=== PATIENT | female | born 1985 | race Caucasian/White ===

== ENCOUNTER → 2023-11-09 06:29 | Day surgery (SDC) | payer MEDICARE, OTHER, SELFPAY | LOC: GI 06:29 | PROVIDERS: ATTENDING PHYSICIAN Internal Medicine Gastroenterology | DX: R12 Heartburn (principal); R11.2 Nausea with vomiting, unspecified; K29.50 Unspecified chronic gastritis without bleeding; K31.89 Other diseases of stomach and duodenum | CPT/HCPCS: 43239; 88305; 88342 ==

== ENCOUNTER → 2023-11-13 14:09 | Outpatient (REF) | payer MEDICARE, OTHER, SELFPAY | LOC: PAVMRI 14:09 | PROVIDERS: ATTENDING PHYSICIAN Otolaryngology; FAMILY PHYSICIAN Family Medicine | DX: R42 Dizziness and giddiness (principal) | CPT/HCPCS: 70553; A9575 ==

== ENCOUNTER 2023-11-18 10:40 | Emergency (ER) | payer MEDICARE, OTHER, SELFPAY ==
[2023-11-18 10:41] VITALS: BP 125/89
--- NOTE | 2023-11-18 11:20 | EDRN ---
Alberto Wells PA in room w/ pt at this time.
--- NOTE | 2023-11-18 11:33 | ED.GENMED ---
History of Present Illness
General
Chief Complaint: Abdominal Pain
Source: patient and family
Time Seen by Provider: 11/18/23 11:08
Travel History
Have you had any contact with someone who has COVID-19?: No
Do you have any symptoms of coronavirus? Fever > 100 degrees, chills, cough, shortness of breath, sore throat, loss of taste or smell, muscle aches, or headache?: No
History of Present Illness
History of Present Illness:
38-year-old female with past medical history of GERD and chronic abdominal pain, anxiety/bipolar disorder/depression/PTSD presenting to the emergency department for evaluation of an acute on chronic exacerbation of her abdominal pain, nausea,
vomiting and diarrhea noting this morning she woke up and took 5 laxatives to help her go to the bathroom and she states since that time has had diarrhea, proceeded to vomit few episodes of bilious emesis and felt dizzy following this event.
Patient follows with ENT for chronic dizziness as well as with GI for her abdominal complications. Patient had an endoscopy about 2 weeks ago which did not show any abnormalities. Patient did not take any medications prior to arrival. She notes
her pain currently is in usual location on the right side of her abdomen but states if she is usually around a 4 or 6 out of 10, today's pain is a 10 out of 10.
Past History
Past History
ED Past Medical History: Asthma, Fibromyalgia, Hypothyroidism, Psychiatric (Bipolar, CHERRI, PTSD), Other (migraines) and Other (anemia)
ED Past Surgical History: Cholecystectomy, and Tonsilectomy
Patient has exhibited threatening behavior?: No
Social History
Tobacco: Smoker
Alcohol: Occasional
Drug: None
Personal: Single
Living: with family
Employment: Not employed
Family History
Family History: Other (Noncontributory)
Review of Systems
Review of Systems
All Other Systems: ROS reviewed and negative except as documented in HPI and ROS
Phy Exam
Physical Exam
Physical Exam:
GENERAL: Alert , in no apparent distress
EYE: clear conjunctiva b/l
HEAD: NCAT
ENT: o/p clr, mmm.
CARDIAC: Regular rate and rhythm .
LUNGS: Clear breath sounds bilaterally, no acute respiratory distress, no wheezes/rales/rhonchi
ABDOMEN: Soft, patient reports diffuse tenderness on the right side of the abdomen, no r/g, no cvat
NEUROLOGICAL: Alert and oriented
SKIN: Warm and dry, skin intact.
MUSCULOSKELETAL: No edema, well perfused.
PSYCH: Normal and appropriate interaction.
Scores
Heart Failure Risk
Heart Failure Risk Score: Not Applicable
Heart Score for Chest Pain Patients
STEMI patient?: Not applicable
Withdrawal Assessment of Alcohol
Withdrawal Assessment Completed?: Not applicable
Course
Orders/Labs/Results
Orders:
Orders
11/18/23 11:20
IV Insert/Care/Rem.- Treatment PRN
Test Result ONCE
11/18/23 11:27
0.9% Sodium Chloride 1000 ml [Nss] 1,000 ml IV BOLUS
Ketorolac [Toradol] 30 mg IV NOW STA
11/18/23 11:34
Complete Blood Count/With Diff Urgent
Comprehensive Metabolic Panel Urgent
HCG, Serum Qualitative Screen Urgent
Lipase Urgent
11/18/23 12:04
CR Obstruct Series W/pa Chest Urgent
Comment:
Reason For Exam: abd pain, N/V
Abnormal Lab Results
11/18/23
11:34
Absolute Neuts (auto) 7.4 H 10^3/uL
(1.4-6.5)
Lymphocytes % 16.4 L %
(20.5-51.1)
Sodium 132 L mmol/L
(135-145)
BUN 6 L mg/dl
(7-17)
11/18/23 11:34
11/18/23 11:34
Vital Signs
Initial and Last Documented VS:
Initial Vital Signs
Temp Pulse Resp BP Pulse Ox
97.7 F 103 20 125/89 96
11/18/23 10:41 11/18/23 10:41 11/18/23 10:41 11/18/23 10:41 11/18/23 10:41
Last Documented Vital Signs
Temp Pulse Resp BP Pulse Ox
97.7 F 77 16 106/79 98
11/18/23 10:41 11/18/23 14:37 11/18/23 14:37 11/18/23 14:37 11/18/23 14:37
MDM/Problems Addressed
Differential Diagnosis Includes:
Exacerbation of chronic abdominal pain, patient is status postcholecystectomy so no concern for this is a complication, possible appendicitis however given patient's pain is in the usual location as well as similar quality I am less suspicious for
an acute surgical abdomen
MDM/Problems Addressed:
38-year-old female present emergency department for evaluation of an exacerbation of her usual abdominal pain. Did not take any medications for relief prior to arrival. She notes that she did take 5 laxative supplements to help her have a bowel
movement which she will often do but today had liquidy stool and proceeded to have bilious emesis. Patient is in no acute distress. Abdominal exam is reassuring. There is no rigidity, no rebound tenderness or guarding. Patient states she was
hoping to get IV fluids as she was very concerned for dehydration. Patient is not outwardly showing any signs of dehydration however will treat with IV fluids. Toradol for pain. I reviewed patient's records which showed her unremarkable endoscopy
done 2 weeks ago as well as a CT scan that was done in July 2023 for similar presentation which did not yield any acute abnormalities. Given her symptoms as well as history of abdominal surgeries will obtain an x-ray of the abdomen to rule out
any potential obstructive processes. Labs ordered. Reassessment following with anticipation of discharge home and continued outpatient management.
Chronic conditions affecting care: Other (Chronic abdominal pain)
*Radiology
Radiology exam reviewed: preliminary read by ED provider ( no obstructive process)
*Pulse Oximetry
Patient hypoxic: no
*Critical Care Note
Total Time (30-74mins, 75-104mins- exclusive of procedures): Not Applicable
Comment
Comment:
On reevaluation patient is resting and in no acute distress. Pending obstructive series with anticipation of discharge home.
Patient Management
Escalation/DeEscalation of care consider admission/obs:
Obstructive series does not show any acute abnormalities. Patient is tolerating p.o. without difficulty. She is ultimately stable for discharge home and continued outpatient management
ED Attending Note
-
Portions of this chart may have been created with voice recognition software.� Occasional wrong word or��sound alike� substitutions may have occurred due to the inherent limitations of voice recognition software.
Discharge Plan
Departure
Patient Disposition: Home (Routine Discharge)
Date of Disposition: 11/18/23
Time of Disposition: 14:18
Patient with high blood pressure during this ER visit?: No
Discharge Problem:
Abdominal pain, Nausea and vomiting
Instructions: Abdominal Pain
Prescriptions:
New
meclizine [Antivert] 50 mg tablet
50 mg PO DAILY PRN (Reason: dizziness) Qty: 6 0RF
No Action
pantoprazole [Protonix] 40 mg Tablet,Delayed Release (Dr/Ec)
40 mg PO BID
lamotrigine [Lamictal] 100 mg Tablet
100 mg PO DAILY
lurasidone [Latuda] 40 mg Tablet
40 mg PO DAILY
Rx Instructions:
must administer with food (at least 350 calories)
meloxicam
1 tab PO TID
ondansetron 4 mg tablet,disintegrating
4 mg PO Q8H PRN (Reason: nausea and vomiting) 2 Days Qty: 3 0RF
promethazine 25 mg suppository
25 mg MO Q6H PRN (Reason: nausea and vomiting) Qty: 20 0RF
Referrals:
Raymundo Gunn, [Family Provider] -
Interventions
Interventions:
*Risk Screen - Suicide Last Done: 11/18/23 11:45
*General Assessment Last Done: 11/18/23 11:45
*Neglect/Abuse Screening Last Done: 11/18/23 11:45
ED- Fall Risk Assessment Last Done: 11/18/23 11:45
*ED COVID-19 Vaccine History Last Done: 11/18/23 10:41
*Nursing Disposition Last Done: 11/18/23 14:50
XX-Pajqpv-Mptezionwn Assessment Last Done: 11/18/23 11:45
Discharge Date and Time
Discharge Date/Time: 11/18/23 14:50
Print Language: TELUGU
[2023-11-18 11:45] VITALS: BMI 42.8
[2023-11-18] MEDS: NSS 1000 IV (11:53)
[2023-11-18 11:55] LABS: % Basophils 0.4 % (0-2); % Eosinophils 3.1 % (0-6); % Immature Granulocytes 0.2 % (0-0.5); % Lymphocytes 16.4 % (20.5-51.1); % Monocytes 4.7 % (1.7-9.3); % Neutrophils 75.2 % (42.2-75.2); Absolute Eosinophils 0.3 10^3/uL (0-0.7); Absolute Lymphocytes 1.6 10^3/uL (1.2-3.4); Absolute Monocytes 0.5 10^3/uL (0.1-0.6); Absolute Neutrophils 7.4 10^3/uL (1.4-6.5); Hematocrit 40.5 % (37.0-47.0); Hemoglobin 14.8 g/dL (12.0-16.0); Mean Corp Hgb Conc. 36.5 g/dL (33.0-37.0); Mean Corpuscular Hgb 30.2 pg (27.0-31.0); Mean Corpuscular Volume 82.7 fL (81.0-99.0); Mean Platelet Volume 9.9 fL (7.4-10.4); Nucleated Red Blood Cells % 0 %; Platelet Count 291 10^3/uL (130-400); White Blood Cell Count 9.8 10^3/uL (4.8-10.8)
[2023-11-18] MEDS: TORADOL 30 MG IV (11:58)
[2023-11-18 12:14] VITALS: BP 117/77
[2023-11-18 12:14] LABS: ALT (SGPT) 23 U/L (0-35); AST (SGOT) 25 U/L (14-36); Albumin 4.1 g/dl (3.5-5.0); Alkaline Phosphatase 85 U/L (38-126); Blood Urea Nitrogen 6 mg/dl (7-17); Calcium 9.3 mg/dl (8.4-10.2); Carbon Dioxide 23 mmol/L (22-30); Chloride 102 mmol/L (98-107); Estimated Creatinine Clearance 116 ml/min; Glucose 98 mg/dl (70-99); HCG, Serum Qualitative Screen Negative; Lipase 175 U/L (23-300); Potassium 3.7 mmol/L (3.5-5.1); Sodium 132 mmol/L (135-145); Total Bilirubin 0.5 mg/dl (0.2-1.3); Total Protein 7.3 g/dl (6.3-8.2); eGFR > 60.00
[2023-11-18 13:41] VITALS: BP 100/65
--- NOTE | 2023-11-18 14:25 | EDRN ---
Alberto Wells PA in room w/pt at this time.
[2023-11-18 14:37] VITALS: BP 106/79
== END 2023-11-18 14:50 | disposition home or self-care (01) ==
LOC: EMR 10:40
PROVIDERS: Physician Assistant Medical; EMERGENCY PHYSICIAN Emergency Medicine; FAMILY PHYSICIAN Family Medicine
DX: R11.2 Nausea with vomiting, unspecified (principal); R10.9 Unspecified abdominal pain; R42 Dizziness and giddiness; R19.7 Diarrhea, unspecified; G89.29 Other chronic pain; E03.9 Hypothyroidism, unspecified; M79.7 Fibromyalgia; F31.9 Bipolar disorder, unspecified; F43.10 Post-traumatic stress disorder, unspecified; K21.9 Gastro-esophageal reflux disease without esophagitis; J45.909 Unspecified asthma, uncomplicated; F41.1 Generalized anxiety disorder; G43.909 Migraine, unspecified, not intractable, without status migrainosus; F17.200 Nicotine dependence, unspecified, uncomplicated; Z90.49 Acquired absence of other specified parts of digestive tract; Z88.8 Allergy status to other drugs, medicaments and biological substances; Z91.048 Other nonmedicinal substance allergy status
CPT/HCPCS: 99284; 96374; 96361; 74022; 80053; 83690; 84703; 85025

== ENCOUNTER 2023-12-07 21:33 | Emergency (ER) | payer MEDICARE, OTHER, SELFPAY ==
[2023-12-07 21:40] VITALS: BP 165/107; BMI 42.3
[2023-12-07 22:03] LABS: % Basophils 0.5 % (0-2); % Eosinophils 4.4 % (0-6); % Immature Granulocytes 0.5 % (0-0.5); % Monocytes 5.1 % (1.7-9.3); % Neutrophils 67.5 % (42.2-75.2); Absolute Basophils 0.1 10^3/uL (0-0.2); Absolute Eosinophils 0.4 10^3/uL (0-0.7); Absolute Immature Granulocytes 0.1 10^3/uL (0-0.05); Absolute Lymphocytes 2.2 10^3/uL (1.2-3.4); Absolute Monocytes 0.5 10^3/uL (0.1-0.6); Absolute Neutrophils 6.8 10^3/uL (1.4-6.5); Hematocrit 41.3 % (37.0-47.0); Hemoglobin 14.9 g/dL (12.0-16.0); Mean Corp Hgb Conc. 36.1 g/dL (33.0-37.0); Mean Corpuscular Hgb 29.9 pg (27.0-31.0); Mean Corpuscular Volume 82.8 fL (81.0-99.0); Mean Platelet Volume 9.6 fL (7.4-10.4); Nucleated Red Blood Cells % 0 %; Platelet Count 319 10^3/uL (130-400); Red Blood Cell Count 4.99 10^6/uL (4.20-5.40); Urine Albumin Trace (Neg - Trace); Urine Bilirubin 1+ (Negative); Urine Character Slightly Cloudy (Clear); Urine Color Yellow; Urine Glucose Negative (Negative); Urine Ketone Trace (Negative); Urine Leukocyte Negative (Negative); Urine Nitrite Negative (Negative); Urine Occult Blood 1+ (Negative); Urine Urobilinogen 3+ (Neg - 1+)
[2023-12-07 22:10] LABS: Urine Bacteria Many (Negative); Urine Red Blood Cell 0-2 /HPF (0-2); Urine White Cell 0-2 /HPF (0-5)
[2023-12-07 22:15] LABS: ALT (SGPT) 24 U/L (0-35); AST (SGOT) 28 U/L (14-36); Albumin 4.3 g/dl (3.5-5.0); Alkaline Phosphatase 93 U/L (38-126); Blood Urea Nitrogen 9 mg/dl (7-17); Calcium 9.1 mg/dl (8.4-10.2); Carbon Dioxide 22 mmol/L (22-30); Chloride 100 mmol/L (98-107); Estimated Creatinine Clearance 115 ml/min; Glucose 104 mg/dl (70-99); Lipase 291 U/L (23-300); Potassium 3.7 mmol/L (3.5-5.1); Sodium 130 mmol/L (135-145); Total Bilirubin 0.5 mg/dl (0.2-1.3); Total Protein 7.5 g/dl (6.3-8.2); eGFR > 60.00
[2023-12-07 22:40] VITALS: BP 174/95
--- NOTE | 2023-12-08 00:14 | ED.GENMED ---
History of Present Illness
General
Chief Complaint: Abdominal Pain
Source: patient and family
Time Seen by Provider: 12/07/23 23:54
Travel History
Have you had any contact with someone who has COVID-19?: No
Do you have any symptoms of coronavirus? Fever > 100 degrees, chills, cough, shortness of breath, sore throat, loss of taste or smell, muscle aches, or headache?: No
History of Present Illness
History of Present Illness:
This patient is a 38-year-old female presents emergency department accompanied by her uncle with complaints of abdominal pain, constipation, nausea, and vomiting. Patient states that she has somewhat persistent upper abdominal pain, prickly on the
right side, and was seen here in the emergency department about 3 weeks ago with an unremarkable workup. She had a recent EGD which was reportedly unremarkable. She is continuing to get an outpatient evaluation with the GI team here. Patient
notes that the pain is constant, mostly in the right upper quadrant, without exacerbating relieving factors. She notes several episodes of nonbloody vomiting here. She denies fever, chills, chest pain, back pain, urinary symptoms, vaginal bleeding
or discharge.
Past History
Past History
ED Past Medical History: Asthma, Fibromyalgia, Hypothyroidism, Psychiatric (Bipolar, CHERRI, PTSD), Other (migraines) and Other (anemia)
ED Past Surgical History: Cholecystectomy, and Tonsilectomy
Patient has exhibited threatening behavior?: No
Social History
Tobacco: Smoker
Alcohol: Occasional
Drug: None
Personal: Single
Living: with family
Employment: Not employed
Family History
Family History: Other (Noncontributory)
Phy Exam
Physical Exam
Physical Exam:
GENERAL: Alert , in no apparent distress, very well-appearing, showing me pictures of her dog on her phone, pleasant
EYE: pupils equal and reactive
NECK: Supple, no significant adenopathy.
ENT: o/p clr, mmm.
CARDIAC: Regular rate and rhythm .
LUNGS: Clear breath sounds bilaterally, no acute respiratory distress, no wheezes/rales/rhonchi
ABDOMEN: Soft, nonspecific distractible diffuse tenderness, no r/g, no cvat
NEUROLOGICAL: Alert and oriented, no focal neuro deficits
SKIN: Warm and dry, skin intact.
MUSCULOSKELETAL: No edema, well perfused.
PSYCH: Normal and appropriate interaction.
Course
Orders/Labs/Results
Orders:
Orders
12/07/23 21:55
Complete Blood Count/With Diff Urgent
Comprehensive Metabolic Panel Urgent
Lipase Urgent
Urinalysis Reflex To Culture Urgent
Date Specimen was Collected: 12/07/23
Time Specimen was Collected: 21:44
Urine Microscopic Reflex Cult Urgent
Urine Culture Urgent
JUAN JOSE Source: U
Specimen Description:
Date Specimen was Collected: 12/07/23
Time Specimen was Collected: 21:44
12/08/23 00:13
Electrocardiogram (*1) Urgent
Reason for Study: Syncope
12/08/23 00:14
EKG- Treatment ONCE
12/08/23 00:48
Ibuprofen [Motrin] 600 mg PO NOW STA
Abnormal Lab Results
12/07/23
21:55
Abs Immat Gran (auto) 0.1 H 10^3/uL
(0-0.05)
Absolute Neuts (auto) 6.8 H 10^3/uL
(1.4-6.5)
Sodium 130 L mmol/L
(135-145)
Glucose 104 H mg/dl
(70-99)
Urine Ketones Trace A
(Negative)
Ur Occult Blood Reflex 1+ A
(Negative)
Urine Bilirubin 1+ A
(Negative)
Urine Urobilinogen 3+ A
(Neg - 1+)
Urine Bacteria (Reflex) Many A
(Negative)
12/07/23 21:55
12/07/23 21:55
Vital Signs
Initial and Last Documented VS:
Initial Vital Signs
Temp Pulse Resp BP Pulse Ox
97.5 F 92 16 165/107 99
12/07/23 21:40 12/07/23 21:40 12/07/23 21:40 12/07/23 21:40 12/07/23 21:40
Last Documented Vital Signs
Temp Pulse Resp BP Pulse Ox
97.5 F 88 14 174/95 100
12/07/23 21:40 12/07/23 22:40 12/07/23 22:40 12/07/23 22:40 12/07/23 22:40
*Critical Care Note
Total Time (30-74mins, 75-104mins- exclusive of procedures): Not Applicable
Update Note
Update Note:
Patient presents to the Emergency Department with abdominal pain
Number and Complexity of Problems Addressed at the Encounter
� Chronic conditions affecting care:
� Acute Exacerbation and/or Progression of Chronic Illness:
� Differential Diagnosis includes: But not limited to retained gallstone, hepatitis, gastritis, gastric ulcer, pancreatitis, etc. etc.
Amount and/or Complexity of Data to be Reviewed and Analyzed
� I performed an independent evaluation of and my interpretation is:
EKG: Read by me, normal sinus rhythm, normal rate, normal axis, no acute ischemia
CT:
Xrays:
Laboratory Studies: Labs generally unremarkable
Other:
� Review of other/old records reveals:
� Clinical information was obtained by an independent historian: Uncle who is bedside
� Prescriptions/Medications Considered but not given:
� Further testing considered but not performed:
Risk of Complications and/or Morbidity or Mortality of Patient Management
� Social determinants of health affecting care:
� Discussion with other providers (PCP, Hospitalists, Consultants, etc):
� Escalation of care including admission/observation vs risk of discharge considered:1259 AM Pt remains well appearing, would like to go home, requesting dose of motrin for pain. While I did not identify specific etiology for
pain, exam/hx, etc does not suggest emergent etiology especially given benign exam and well appearance. Pt aware of import of f/ua nd reasons to rted.
ED Attending Note
-
Portions of this chart may have been created with voice recognition software.� Occasional wrong word or��sound alike� substitutions may have occurred due to the inherent limitations of voice recognition software.
Discharge Plan
Departure
Patient Disposition: Home (Routine Discharge)
Date of Disposition: 12/08/23
Time of Disposition: 00:54
Patient with high blood pressure during this ER visit?: Yes
Condition: Good
Discharge Problem:
Abdominal pain
Instructions: Abdominal Pain, BLOOD PRESSURE
Prescriptions:
No Action
pantoprazole [Protonix] 40 mg Tablet,Delayed Release (Dr/Ec)
40 mg PO BID
lamotrigine [Lamictal] 100 mg Tablet
100 mg PO DAILY
lurasidone [Latuda] 40 mg Tablet
40 mg PO DAILY
Rx Instructions:
must administer with food (at least 350 calories)
meloxicam
1 tab PO TID
ondansetron 4 mg tablet,disintegrating
4 mg PO Q8H PRN (Reason: nausea and vomiting) 2 Days Qty: 3 0RF
promethazine 25 mg suppository
25 mg [place] Q6H PRN (Reason: nausea and vomiting) Qty: 20 0RF
meclizine [Antivert] 50 mg tablet
50 mg PO DAILY PRN (Reason: dizziness) Qty: 6 0RF
Referrals:
Raymundo Gunn DO [Family Provider] - Next open appointment
Activity Restrictions/Additional Instructions:
IF YOU DEVELOP INCREASING/NEW PAIN, FEVER, REPEATED VOMITING, CHEST PAIN, TROUBLE BREATHING, OR OTHER WORRISOME SIGNS, GO TO THE ER IMMEDIATELY!
Interventions
Interventions:
*Risk Screen - Suicide Last Done: 12/07/23 21:40
*General Assessment Last Done: 12/07/23 23:59
*Neglect/Abuse Screening Last Done: 12/07/23 21:40
ED- Fall Risk Assessment Last Done: 12/07/23 21:40
*ED COVID-19 Vaccine History Last Done: 12/07/23 23:59
DL-Rqkfdg-Cuhsvcuggc Assessment Last Done: 12/07/23 23:39
Discharge Date and Time
Print Language: KOREAN
[2023-12-08] MEDS: MOTRIN 600 MG PO (00:58)
[2023-12-08 01:03] VITALS: BP 158/77
== END 2023-12-08 01:04 | disposition home or self-care (01) ==
LOC: EMR 21:33
PROVIDERS: Emergency Medicine; EMERGENCY PHYSICIAN Emergency Medicine; FAMILY PHYSICIAN Family Medicine
DX: R10.9 Unspecified abdominal pain (principal); R03.0 Elevated blood-pressure reading, without diagnosis of hypertension; F17.200 Nicotine dependence, unspecified, uncomplicated
CPT/HCPCS: 99284; 80053; 81003; 81015; 83690; 85025; 87086; 93005

== ENCOUNTER → 2024-01-06 07:33 | Outpatient (REF) | payer MEDICARE, OTHER, SELFPAY | LOC: MRI 3T 07:33 | PROVIDERS: ATTENDING PHYSICIAN Psychiatry & Neurology Neurology; FAMILY PHYSICIAN Family Medicine | DX: R42 Dizziness and giddiness (principal) | CPT/HCPCS: 72141 ==

== ENCOUNTER 2024-02-03 13:19 | Emergency (ER) | payer MEDICARE, OTHER, SELFPAY ==
[2024-02-03 13:19] VITALS: BMI 44.4
[2024-02-03 13:22] VITALS: BP 149/89
--- NOTE | 2024-02-03 15:01 | ED.GENMED ---
History of Present Illness
General
Chief Complaint: Chest Pain
Source: patient
Exam Limitations: none
Time Seen by Provider: 02/03/24 14:19
Nursing documentation reviewed up to this point in time: agreed with
History of Present Illness
History of Present Illness:
Patient to to ED with complaint of mid back pain radiating to right side of abdomen. Symmptoms started this AM. Denies fever/chills. Reports multiple episodes of vomiting. Brought to ED by family for eval.
Past History
Past History
ED Past Medical History: Asthma, Fibromyalgia, Hypothyroidism, Psychiatric (Bipolar, CHERRI, PTSD), Other (migraines) and Other (anemia)
ED Past Surgical History: Cholecystectomy, and Tonsilectomy
Patient has exhibited threatening behavior?: No
Social History
Tobacco: Smoker
Alcohol: Occasional
Drug: None
Personal: Single
Living: with family
Employment: Not employed
Family History
Family History: Other (Noncontributory)
Review of Systems
Review of Systems
Allergies reviewed?: Yes
All Other Systems: ROS reviewed and negative except as documented in HPI and ROS
Constitutional: Reports no symptoms
EENT: Reports no symptoms
Respiratory: Reports no symptoms
Cardiac: Reports no symptoms
ABD/GI: Reports abdominal pain, nausea and vomiting
: Reports no symptoms
Musculoskeletal: Reports no symptoms
Skin: Reports no symptoms
Neurological: Reports no symptoms
Psychiatric: Reports no symptoms
Phy Exam
General Physical Exam
General Presentation: well appearing and no apparent distress
General age: appears stated age
General Skin: warm and dry
General Habitus: normal
General Mental: alert
General Hydration: appears well hydrated
Cardiovascular Exam
Cardiovascular Exam: regular rate/rhythm and no edema
Pulmonary Exam
Pulmonary Exam: lungs clear, no respiratory distress and chest non tender
Gastrointestinal Exam
Gastrointestinal Exam: normal bowel sounds, non tender, soft, no organomegaly, non distended and no cva tenderness
Musculoskeletal Exam
Musculoskeletal Exam: full ROM and neuro vasc intact
Skin Exam
Skin Exam: normal color, warm/dry and no rash
Psychiatric Exam
Psychiatric Exam: normal mood/affect
Scores
Heart Score for Chest Pain Patients
STEMI patient?: Not applicable
Course
Orders/Labs/Results
Orders:
Orders
02/03/24 13:25
EKG [Electrocardiogram (*1)] Urgent
Reason for Study: Chest Pain
EKG- Treatment ONCE
02/03/24 14:59
Metoclopramide [Reglan] 10 mg IV NOW STA
Test Result ONCE
CR Chest - 2 Views Urgent
Comment:
Reason For Exam: chest pain
02/03/24 15:00
0.9% Sodium Chloride 1000 ml [Nss] 1,000 ml IV BOLUS
02/03/24 15:07
Complete Blood Count/With Diff Urgent
Comprehensive Metabolic Panel Urgent
HCG, Serum Qualitative Screen Urgent
Lipase Urgent
Urinalysis Reflex To Culture Urgent
Date Specimen was Collected: 02/03/24
Time Specimen was Collected: 15:05
Abnormal Lab Results
02/03/24
15:07
WBC 11.3 H 10^3/uL
(4.8-10.8)
Abs Immat Gran (auto) 0.1 H 10^3/uL
(0-0.05)
Absolute Neuts (auto) 9.1 H 10^3/uL
(1.4-6.5)
Immature Gran % 0.6 H %
(0-0.5)
Neutrophils % 81.1 H %
(42.2-75.2)
Lymphocytes % 12.3 L %
(20.5-51.1)
Sodium 133 L mmol/L
(135-145)
Glucose 107 H mg/dl
(70-99)
02/03/24 15:07
02/03/24 15:07
Vital Signs
Initial and Last Documented VS:
Initial Vital Signs
Temp Pulse Resp BP Pulse Ox
98.2 F 83 16 149/89 100
02/03/24 13:22 02/03/24 13:22 02/03/24 13:22 02/03/24 13:22 02/03/24 13:22
Last Documented Vital Signs
Temp Pulse Resp BP Pulse Ox
98.2 F 74 16 132/74 99
02/03/24 13:22 02/03/24 15:16 02/03/24 15:16 02/03/24 15:16 02/03/24 15:16
*Radiology
Radiology exam reviewed: radiology read reviewed
*Pulse Oximetry
Patient hypoxic: no
*Critical Care Note
Total Time (30-74mins, 75-104mins- exclusive of procedures): Not Applicable
Update Note
Update Note:
Improved with IVF and Reglan. Labs reviewed, CXR reviewed, no concerning findings on exam. SHe is discharged home and will follow up with PCP in AM
ED Attending Note
-
Portions of this chart may have been created with voice recognition software.� Occasional wrong word or��sound alike� substitutions may have occurred due to the inherent limitations of voice recognition software.
Discharge Plan
Departure
Patient Disposition: Home (Routine Discharge)
Date of Disposition: 02/03/24
Time of Disposition: 15:56
Patient with high blood pressure during this ER visit?: No
Condition: Good
Covid-19: Not Applicable
Discharge Problem:
Nausea & vomiting
Instructions: Acute Nausea and Vomiting
Prescriptions:
No Action
pantoprazole [Protonix] 40 mg Tablet,Delayed Release (Dr/Ec)
40 mg PO BID
lamotrigine [Lamictal] 100 mg Tablet
100 mg PO DAILY
lurasidone [Latuda] 40 mg Tablet
40 mg PO DAILY
Rx Instructions:
must administer with food (at least 350 calories)
meloxicam
1 tab PO TID
ondansetron 4 mg tablet,disintegrating
4 mg PO Q8H PRN (Reason: nausea and vomiting) 2 Days Qty: 3 0RF
promethazine 25 mg suppository
25 mg [place] Q6H PRN (Reason: nausea and vomiting) Qty: 20 0RF
meclizine [Antivert] 50 mg tablet
50 mg PO DAILY PRN (Reason: dizziness) Qty: 6 0RF
Referrals:
Raymundo Gunn DO [Family Provider] - Follow up in 2-3 days
Interventions
Interventions:
*Risk Screen - Suicide Last Done: 02/03/24 13:22
*General Assessment Last Done: 02/03/24 13:22
*Neglect/Abuse Screening Last Done: 02/03/24 13:22
ED- Fall Risk Assessment Last Done: 02/03/24 14:39
*ED COVID-19 Vaccine History Last Done: 02/03/24 14:39
*Nursing Disposition Last Done: 02/03/24 15:58
ED- Cardiac Assessment Last Done: 02/03/24 14:39
Discharge Date and Time
Discharge Date/Time: 02/03/24 15:58
Print Language: KAZAKH
[2024-02-03] MEDS: REGLAN 10 MG IV (15:05)
[2024-02-03] MEDS: NSS 1000 IV (15:05)
[2024-02-03 15:16] VITALS: BP 132/74
[2024-02-03 15:23] LABS: Urine Albumin Negative (Neg - Trace); Urine Bilirubin Negative (Negative); Urine Character Clear (Clear); Urine Color Yellow; Urine Glucose Negative (Negative); Urine Ketone Negative (Negative); Urine Leukocyte Negative (Negative); Urine Nitrite Negative (Negative); Urine Occult Blood Negative (Negative); Urine Urobilinogen Negative (Neg - 1+)
[2024-02-03 15:25] LABS: % Basophils 0.4 % (0-2); % Eosinophils 1.9 % (0-6); % Immature Granulocytes 0.6 % (0-0.5); % Lymphocytes 12.3 % (20.5-51.1); % Monocytes 3.7 % (1.7-9.3); % Neutrophils 81.1 % (42.2-75.2); Absolute Eosinophils 0.2 10^3/uL (0-0.7); Absolute Immature Granulocytes 0.1 10^3/uL (0-0.05); Absolute Lymphocytes 1.4 10^3/uL (1.2-3.4); Absolute Monocytes 0.4 10^3/uL (0.1-0.6); Absolute Neutrophils 9.1 10^3/uL (1.4-6.5); Hematocrit 45.3 % (37.0-47.0); Hemoglobin 15.7 g/dL (12.0-16.0); Mean Corp Hgb Conc. 34.7 g/dL (33.0-37.0); Mean Corpuscular Hgb 29.5 pg (27.0-31.0); Mean Corpuscular Volume 85.2 fL (81.0-99.0); Mean Platelet Volume 9.8 fL (7.4-10.4); Nucleated Red Blood Cells % 0 %; Platelet Count 284 10^3/uL (130-400); Red Blood Cell Count 5.32 10^6/uL (4.20-5.40); Red Cell Dist. Width 11.8 % (11.5-14.5); White Blood Cell Count 11.3 10^3/uL (4.8-10.8)
[2024-02-03 15:36] LABS: HCG, Serum Qualitative Screen Negative
[2024-02-03 15:40] LABS: ALT (SGPT) 26 U/L (0-35); AST (SGOT) 30 U/L (14-36); Albumin 4.4 g/dl (3.5-5.0); Alkaline Phosphatase 90 U/L (38-126); Blood Urea Nitrogen 8 mg/dl (7-17); Calcium 9.3 mg/dl (8.4-10.2); Carbon Dioxide 26 mmol/L (22-30); Chloride 99 mmol/L (98-107); Estimated Creatinine Clearance 101 ml/min; Glucose 107 mg/dl (70-99); Lipase 205 U/L (23-300); Potassium 4.3 mmol/L (3.5-5.1); Sodium 133 mmol/L (135-145); Total Bilirubin 0.6 mg/dl (0.2-1.3); Total Protein 7.5 g/dl (6.3-8.2); eGFR > 60.00
== END 2024-02-03 15:58 | disposition home or self-care (01) ==
LOC: EMR 13:19
PROVIDERS: Nurse Practitioner; EMERGENCY PHYSICIAN Student in an Organized Health Care Education/Training Program; FAMILY PHYSICIAN Family Medicine
DX: R11.2 Nausea with vomiting, unspecified (principal); J45.909 Unspecified asthma, uncomplicated; M79.7 Fibromyalgia; E03.9 Hypothyroidism, unspecified; F41.9 Anxiety disorder, unspecified; F41.1 Generalized anxiety disorder; F43.10 Post-traumatic stress disorder, unspecified; F17.200 Nicotine dependence, unspecified, uncomplicated
CPT/HCPCS: 99283; 96374; 96361; 71046; 80053; 81003; 83690; 84703; 85025; 93005

== ENCOUNTER → 2024-03-11 07:45 | Outpatient (REF) | payer MEDICARE, OTHER, SELFPAY | LOC: HWRAD 07:45 | PROVIDERS: ATTENDING PHYSICIAN Physician Assistant; FAMILY PHYSICIAN Family Medicine | DX: R10.13 Epigastric pain (principal) | CPT/HCPCS: 76700 ==

== ENCOUNTER → 2024-03-17 08:05 | Outpatient (REF) | payer MEDICARE, OTHER, SELFPAY | LOC: RAD 08:05 | PROVIDERS: ATTENDING PHYSICIAN Physician Assistant; FAMILY PHYSICIAN Family Medicine | DX: R11.14 Bilious vomiting (principal) | CPT/HCPCS: 78264; A9541 ==

== ENCOUNTER 2024-06-23 06:24 | Day surgery (SDC) | payer MEDICARE, OTHER, SELFPAY | END 2024-06-23 12:17 | disposition home or self-care (01) | LOC: GI 06:24 | PROVIDERS: ATTENDING PHYSICIAN Internal Medicine Gastroenterology | DX: K63.5 Polyp of colon (principal); K52.9 Noninfective gastroenteritis and colitis, unspecified; K92.1 Melena; R19.4 Change in bowel habit | CPT/HCPCS: 45380; 88305 ==

== ENCOUNTER → 2024-06-24 13:45 | Outpatient (REF) | payer MEDICARE, OTHER, SELFPAY | LOC: HWRAD 13:45 | PROVIDERS: ATTENDING PHYSICIAN Student in an Organized Health Care Education/Training Program | DX: R07.81 Pleurodynia (principal) | CPT/HCPCS: 71111 ==

== ENCOUNTER 2024-09-03 04:44 | Emergency (ER) | payer MEDICARE, OTHER, SELFPAY ==
[2024-09-03 04:47] VITALS: BP 122/88
[2024-09-03 05:59] VITALS: BMI 41.3
[2024-09-03 06:08] VITALS: BP 121/91
[2024-09-03 06:28] LABS: % Basophils 0.2 % (0-2); % Eosinophils 2.1 % (0-6); % Immature Granulocytes 0.6 % (0-0.5); % Lymphocytes 23.8 % (20.5-51.1); % Monocytes 6.1 % (1.7-9.3); % Neutrophils 67.2 % (42.2-75.2); Absolute Eosinophils 0.1 10^3/uL (0-0.7); Absolute Lymphocytes 1.6 10^3/uL (1.2-3.4); Absolute Monocytes 0.4 10^3/uL (0.1-0.6); Absolute Neutrophils 4.4 10^3/uL (1.4-6.5); Hematocrit 45.9 % (37.0-47.0); Hemoglobin 16.1 g/dL (12.0-16.0); Mean Corp Hgb Conc. 35.1 g/dL (33.0-37.0); Mean Corpuscular Hgb 29.1 pg (27.0-31.0); Mean Platelet Volume 10.7 fL (7.4-10.4); Nucleated Red Blood Cells % 0 %; Platelet Count 187 10^3/uL (130-400); Red Blood Cell Count 5.53 10^6/uL (4.20-5.40); Red Cell Dist. Width 12.5 % (11.5-14.5); White Blood Cell Count 6.6 10^3/uL (4.8-10.8)
[2024-09-03 06:42] LABS: ALT (SGPT) 77 U/L (0-35); AST (SGOT) 46 U/L (14-36); Albumin 3.7 g/dl (3.5-5.0); Alkaline Phosphatase 77 U/L (38-126); Blood Urea Nitrogen 7 mg/dl (7-17); Calcium 8.5 mg/dl (8.4-10.2); Carbon Dioxide 23 mmol/L (22-30); Chloride 104 mmol/L (98-107); Estimated Creatinine Clearance > 125 ml/min; Glucose 114 mg/dl (70-99); Potassium 3.5 mmol/L (3.5-5.1); Sodium 135 mmol/L (135-145); Total Bilirubin 0.6 mg/dl (0.2-1.3); Total Protein 6.6 g/dl (6.3-8.2); eGFR > 60.00
[2024-09-03 07:00] VITALS: BP 119/88
--- NOTE | 2024-09-03 07:09 | ED.GENMED ---
History of Present Illness
General
Chief Complaint: Abdominal Symptoms
Source: patient
Exam Limitations: none
Time Seen by Provider: 09/03/24 06:56
History of Present Illness
History of Present Illness:
39yoF with a history of gastroparesis, GERD, and bipolar disorder presenting for evaluation of vomiting. Symptoms began last night around 8 PM. She reports nausea and vomiting. She has vomited about 10 times throughout the night to the point
where she was only vomiting up stomach acid. She states her symptoms are classic for her gastroparesis flares. She believes the trigger is increasing stress. She denies any suspicious food intake. Patient has been in the ED for 2+ hours prior to
initial exam and has not had any vomiting since arrival. Patient states she is feeling much better and would like to go home now. She denies any fevers, diarrhea, chest pain, shortness of breath, abdominal pain, urinary symptoms. Previous
abdominal surgeries include a cholecystectomy.
Past History
Past History
ED Past Medical History: Asthma, Fibromyalgia, Hypothyroidism, Psychiatric (Bipolar, CHERRI, PTSD), Other (migraines) and Other (anemia)
ED Past Surgical History: Cholecystectomy, and Tonsilectomy
Patient has exhibited threatening behavior?: No
Social History
Tobacco: Smoker
Alcohol: Occasional
Drug: None
Personal: Single
Living: with family
Employment: Not employed
Family History
Family History: Other (Noncontributory)
Phy Exam
General Physical Exam
General Presentation: well appearing and no apparent distress
General age: appears stated age
General Skin: warm and dry
General Habitus: normal
General Mental: alert
ENT Exam
ENT Exam: normocephalic
Cardiovascular Exam
Cardiovascular Exam: regular rate/rhythm and no murmur
Pulmonary Exam
Pulmonary Exam: lungs clear, no respiratory distress, no rales, no crackles and no rhonchi
Gastrointestinal Exam
Gastrointestinal Exam: non tender, soft and non distended
Neurological Exam
Neurological Exam: alert
[place] Coma Scale
Eye Opening: Spontaneous
Verbal Response: Oriented
Motor Response: Obeys Commands
GCS Total Score: 15
Skin Exam
Skin Exam: normal color and warm/dry
Psychiatric Exam
Psychiatric Exam: normal mood/affect
Course
Orders/Labs/Results
Orders:
Orders
09/03/24 06:07
Complete Blood Count/With Diff Urgent
Comprehensive Metabolic Panel Urgent
Lipase Urgent
Abnormal Lab Results
09/03/24
06:07
RBC 5.53 H 10^6/uL
(4.20-5.40)
Hgb 16.1 H g/dL
(12.0-16.0)
MPV 10.7 H fL
(7.4-10.4)
Immature Gran % 0.6 H %
(0-0.5)
Glucose 114 H mg/dl
(70-99)
AST 46 H U/L
(14-36)
ALT 77 H U/L
(0-35)
09/03/24 06:07
09/03/24 06:07
Vital Signs
Initial and Last Documented VS:
Initial Vital Signs
Temp Pulse Resp BP Pulse Ox
97.8 F 90 20 122/88 98
09/03/24 04:47 09/03/24 04:47 09/03/24 04:47 09/03/24 04:47 09/03/24 04:47
Last Documented Vital Signs
Temp Pulse Resp BP Pulse Ox
97.8 F 90 20 119/88 94
09/03/24 04:47 09/03/24 04:47 09/03/24 04:47 09/03/24 07:00 09/03/24 07:30
MDM/Problems Addressed
Differential Diagnosis Includes:
39yoF here with n/v that started last night. Feels like a gastroparesis flare. Symptoms now improved. No episodes of vomiting in >2 hours. Denies diarrhea, abd pain, fevers. VSS. She is well-appearing in no acute distress. Abdominal exam is
benign. Differential diagnosis includes but is not limited to: Gastroenteritis, gastroparesis, dehydration
Lab work obtained prior to my initial exam. Mild transaminitis noted which is consistent with prior labs. White count, electrolytes, and renal function normal. Patient states she is feeling better and would like to go home. She declines IV
fluids and p.o. challenge. Patient has scopolamine patches that she may use at home. Supportive care discussed. Advised follow-up with PCP and GI. ED return precautions discussed. Patient in agreement with plan and was discharged in stable
condition.
*Critical Care Note
Total Time (30-74mins, 75-104mins- exclusive of procedures): Not Applicable
ED Attending Note
-
Portions of this chart may have been created with voice recognition software.� Occasional wrong word or��sound alike� substitutions may have occurred due to the inherent limitations of voice recognition software.
Discharge Plan
Departure
Patient Disposition: Home (Routine Discharge)
Date of Disposition: 09/03/24
Time of Disposition: 07:11
Patient with high blood pressure during this ER visit?: No
Discharge Problem:
Nausea and vomiting
Instructions: Nausea and Vomiting, Adult (DC)
Prescriptions:
No Action
pantoprazole [Protonix] 40 mg Tablet,Delayed Release (Dr/Ec)
40 mg PO BID
lamotrigine [Lamictal] 100 mg Tablet
100 mg PO DAILY
lurasidone [Latuda] 40 mg Tablet
40 mg PO DAILY
Rx Instructions:
must administer with food (at least 350 calories)
meloxicam
1 tab PO TID
ondansetron 4 mg tablet,disintegrating
4 mg PO Q8H PRN (Reason: nausea and vomiting) 2 Days Qty: 3 0RF
promethazine 25 mg suppository
25 mg [place] Q6H PRN (Reason: nausea and vomiting) Qty: 20 0RF
meclizine [Antivert] 50 mg tablet
50 mg PO DAILY PRN (Reason: dizziness) Qty: 6 0RF
Referrals:
Sana Lamas MD [Family Provider] -
Activity Restrictions/Additional Instructions:
Continue using scopolamine patches as needed. Drink plenty of fluids and eat a bland diet (rice, applesauce, toast, bananas).
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 Return to the ER with any worsening symptoms or if you are unable to keep down fluids.
Interventions
Interventions:
*Risk Screen - Suicide Last Done: 09/03/24 04:47
*General Assessment Last Done: 09/03/24 07:51
*Neglect/Abuse Screening Last Done: 09/03/24 04:47
ED- Fall Risk Assessment Last Done: 09/03/24 05:59
*ED COVID-19 Vaccine History Last Done: 09/03/24 05:59
*Nursing Disposition Last Done: 09/03/24 07:51
ZF-Oblpcd-Iziswvzksj Assessment Last Done: 09/03/24 05:59
Discharge Date and Time
Discharge Date/Time: 09/03/24 07:51
Print Language: RWANDAN
[2024-09-03 07:13] LABS: Lipase 268 U/L (23-300)
== END 2024-09-03 07:51 | disposition home or self-care (01) ==
LOC: EMR 04:44
PROVIDERS: Student in an Organized Health Care Education/Training Program; EMERGENCY PHYSICIAN Emergency Medicine; FAMILY PHYSICIAN Student in an Organized Health Care Education/Training Program
DX: R11.2 Nausea with vomiting, unspecified (principal); K21.9 Gastro-esophageal reflux disease without esophagitis; J45.909 Unspecified asthma, uncomplicated; E03.9 Hypothyroidism, unspecified; Z90.49 Acquired absence of other specified parts of digestive tract; F17.200 Nicotine dependence, unspecified, uncomplicated
CPT/HCPCS: 99283; 80053; 83690; 85025

== ENCOUNTER 2024-09-22 21:41 | Emergency (ER) | payer MEDICARE, OTHER, SELFPAY ==
[2024-09-22 21:44] VITALS: BP 163/106
[2024-09-22 22:15] LABS: % Basophils 0.4 % (0-2); % Eosinophils 3.4 % (0-6); % Immature Granulocytes 0.4 % (0-0.5); % Lymphocytes 14.6 % (20.5-51.1); % Monocytes 5.5 % (1.7-9.3); % Neutrophils 75.7 % (42.2-75.2); Absolute Eosinophils 0.4 10^3/uL (0-0.7); Absolute Lymphocytes 1.6 10^3/uL (1.2-3.4); Absolute Monocytes 0.6 10^3/uL (0.1-0.6); Absolute Neutrophils 8.4 10^3/uL (1.4-6.5); Hematocrit 43.7 % (37.0-47.0); Hemoglobin 15.5 g/dL (12.0-16.0); Mean Corp Hgb Conc. 35.5 g/dL (33.0-37.0); Mean Corpuscular Hgb 30.4 pg (27.0-31.0); Mean Corpuscular Volume 85.7 fL (81.0-99.0); Mean Platelet Volume 11.5 fL (7.4-10.4); Nucleated Red Blood Cells % 0 %; Platelet Count 234 10^3/uL (130-400); Red Cell Dist. Width 12.6 % (11.5-14.5); White Blood Cell Count 11.1 10^3/uL (4.8-10.8)
[2024-09-22 22:36] LABS: ALT (SGPT) 34 U/L (0-35); AST (SGOT) 30 U/L (14-36); Albumin 3.9 g/dl (3.5-5.0); Alkaline Phosphatase 93 U/L (38-126); Blood Urea Nitrogen 4 mg/dl (7-17); Calcium 8.8 mg/dl (8.4-10.2); Carbon Dioxide 23 mmol/L (22-30); Chloride 101 mmol/L (98-107); Glucose 109 mg/dl (70-99); Sodium 133 mmol/L (135-145); Total Bilirubin 0.8 mg/dl (0.2-1.3); eGFR > 60.00
[2024-09-22 22:39] LABS: Troponin I < 0.012 ng/ml
== END 2024-09-23 01:57 ==
LOC: EMR 21:41
PROVIDERS: EMERGENCY PHYSICIAN Emergency Medicine
DX: R07.9 Chest pain, unspecified (principal); Z53.21 Procedure and treatment not carried out due to patient leaving prior to being seen by health care provider
CPT/HCPCS: 80053; 84484; 85025; 93005

== ENCOUNTER 2025-06-20 13:11 | Emergency (ER) | payer MEDICARE, OTHER, SELFPAY ==
[2025-06-20 13:20] VITALS: BP 135/105
--- NOTE | 2025-06-20 13:53 | ED.GENMED ---
History of Present Illness
General
Chief Complaint: Skin Problem
Source: patient
Exam Limitations: none
Time Seen by Provider: 06/20/25 13:46
History of Present Illness
History of Present Illness:
40yoF with a history of ankylosing spondylitis, fibromyalgia, bipolar disorder, gastroparesis presenting for evaluation of a left great toe infection. Patient stubbed her toe several weeks ago and has been having persistent swelling since then.
She now has a wound and decided to go to urgent care today. She was told that she likely had osteomyelitis at urgent care and to go to the ED for admission and IV antibiotics. She is otherwise feeling well and denies any fevers or chills. No
prior history of diabetes.
Past History
Past History
ED Past Medical History: Asthma, Fibromyalgia, Hypothyroidism, Psychiatric (Bipolar, CHERRI, PTSD), Other (migraines) and Other (anemia)
ED Past Surgical History: Cholecystectomy, and Tonsilectomy
Patient has exhibited threatening behavior?: No
Social History
Tobacco: Smoker
Alcohol: Occasional
Drug: None
Personal: Single
Living: with family
Employment: Not employed
Family History
Family History: Other (Noncontributory)
Phy Exam
General Physical Exam
General Presentation: well appearing and no apparent distress
General Skin: warm and dry
General Habitus: normal
General Mental: alert
ENT Exam
ENT Exam: normocephalic
Pulmonary Exam
Pulmonary Exam: no respiratory distress
Neurological Exam
Neurological Exam: alert
[place] Coma Scale
Eye Opening: Spontaneous
Verbal Response: Oriented
Motor Response: Obeys Commands
GCS Total Score: 15
Skin Exam
Skin Exam: warm/dry and other (L great toe: Open wound noted to lateral aspect of the toe with purulent drainage. Surrounding erythema noted that is localized to the toe. No crepitus or pain out of proportion. 2+ DP pulse.)
Psychiatric Exam
Psychiatric Exam: normal mood/affect
Course
Orders/Labs/Results
Orders:
Orders
06/20/25 13:52
CR Toe(s) Min 2 Vw Left Urgent
Comment:
Reason For Exam: great toe wound
06/20/25 14:10
Complete Blood Count/With Diff Urgent
ESR [Erythrocyte Sed Rate] Urgent
Wound Culture [Wound/Abscess/Other Culture] Urgent
JUAN JOSE Source: Ulcer
Specimen Description:
Date Specimen was Collected: 06/20/25
Time Specimen was Collected: 14:00
Comment: L toe
06/20/25 14:11
CRP [C-Reactive Protein] Urgent
Comprehensive Metabolic Panel Urgent
Abnormal Lab Results
06/20/25 06/20/25
14:10 14:11
MPV 11.1 H fL
(7.4-10.4)
ESR 25 H mm/hour
(0-20)
Sodium 132 L mmol/L
(135-145)
C-Reactive Protein 18.30 H mg/L
(0.0-10.00)
06/20/25 14:10
06/20/25 14:11
Vital Signs
Initial and Last Documented VS:
Initial Vital Signs
Temp Pulse Resp BP Pulse Ox
98.0 F 85 18 135/105 98
06/20/25 13:20 06/20/25 13:20 06/20/25 13:20 06/20/25 13:20 06/20/25 13:20
Last Documented Vital Signs
Temp Pulse Resp BP Pulse Ox
98.0 F 85 18 135/105 98
06/20/25 13:20 06/20/25 13:20 06/20/25 13:20 06/20/25 13:20 06/20/25 13:56
Procedures
Incision/Drainage/Joint Aspiration
Left First Toe:
Anethesia: 1% Lidocaine
Preparation: cleaned with Betadine
Type of procedure: incise and drain
Nature of site: abscess
Description of abscess: less than 3cm
Loculations broken up: Yes
How much fluid was obtained?: small amount
Fluid description: purulent
Treatment: left open for drainage and antibiotics started
MDM/Problems Addressed
Differential Diagnosis Includes:
40yoF here with L great toe swelling and redness. Started after stubbing toe a few weeks ago. Sent here from urgent care for eval. VSS. There is an open wound noted on exam with purulent drainage and surrounding erythema. Redness does not extend
past toe. No crepitus or pain out of proportion. No history of diabetes. Differential diagnosis includes but is not limited to: abscess, cellulitis, consider osteomyelitis but less likely
Initial ED plan: Check CBC, CMP, ESR/CRP, wound culture, and toe x-rays.
*Pulse Oximetry
SaO2: 98
Oxygen Mode of Delivery: Room air
Patient hypoxic: no
*Critical Care Note
Total Time (30-74mins, 75-104mins- exclusive of procedures): Not Applicable
Update Note
Update Note:
Labs reveal normal white count and glucose. ESR and CRP mildly elevated. X-rays normal without evidence of osteomyelitis or soft tissue gas. I&D performed at bedside with purulence expressed. Patient feels that swelling in toe is already improving
immediately after I&D. No indication for hospitalization. She was started on a course of clindamycin. She was advised to f/u with podiatry and ED return precautions reviewed. Patient in agreement with plan and she was discharged in stable condition.
ED Attending Note
-
Portions of this chart may have been created with voice recognition software.� Occasional wrong word or��sound alike� substitutions may have occurred due to the inherent limitations of voice recognition software.
Discharge Plan
Departure
Patient Disposition: Home (Routine Discharge)
Date of Disposition: 06/20/25
Time of Disposition: 16:06
Patient with high blood pressure during this ER visit?: No
Discharge Problem:
Abscess of great toe of left foot
Instructions: Skin Abscess
Prescriptions:
New
clindamycin HCl [Cleocin HCl] 300 mg capsule
300 mg PO Q6H 7 Days Qty: 28 0RF
No Action
pantoprazole [Protonix] 40 mg Tablet,Delayed Release (Dr/Ec)
40 mg PO BID
lamotrigine [Lamictal] 100 mg Tablet
100 mg PO DAILY
lurasidone [Latuda] 40 mg Tablet
40 mg PO DAILY
Rx Instructions:
must administer with food (at least 350 calories)
meloxicam
1 tab PO TID
ondansetron 4 mg tablet,disintegrating
4 mg PO Q8H PRN (Reason: nausea and vomiting) 2 Days Qty: 3 0RF
promethazine 25 mg suppository
25 mg [place] Q6H PRN (Reason: nausea and vomiting) Qty: 20 0RF
meclizine [Antivert] 50 mg tablet
50 mg PO DAILY PRN (Reason: dizziness) Qty: 6 0RF
Referrals:
Marianne Reese DPM [Active, Podiatry]
Sana Lamas MD [Family Provider, Internal Medicine]
Activity Restrictions/Additional Instructions:
Take antibiotics as prescribed. Change dressings daily.
Please call on Sunday to schedule a follow-up appointment with podiatry. Return to the ER with any new or worsening symptoms including spreading redness or fevers.
Interventions
Interventions:
*Risk Screen - Suicide Last Done: 06/20/25 13:20
*Neglect/Abuse Screening Last Done: 06/20/25 13:20
*ED COVID-19 Vaccine History Last Done: 06/20/25 13:20
*ED Influenza Vaccine History Last Done: 06/20/25 13:20
*Nursing Disposition Last Done: 06/20/25 16:27
ED-Skin Assessment Last Done: 06/20/25 14:24
Discharge Date and Time
Discharge Date/Time: 06/20/25 16:27
Print Language: SERBIAN
[2025-06-20 14:23] VITALS: BMI 37.9
[2025-06-20 14:27] LABS: Hematocrit 41.8 % (37.0-47.0); Hemoglobin 14.9 g/dL (12.0-16.0); Mean Corp Hgb Conc. 35.6 g/dL (33.0-37.0); Mean Corpuscular Volume 84.4 fL (81.0-99.0); Nucleated Red Blood Cells % 0 %; Platelet Count 232 10^3/uL (130-400); Red Cell Dist. Width 12.4 % (11.5-14.5)
[2025-06-20 14:55] LABS: ALT (SGPT) 27 U/L (0-35); AST (SGOT) 26 U/L (14-36); Albumin 3.8 g/dl (3.5-5.0); Alkaline Phosphatase 70 U/L (38-126); Blood Urea Nitrogen 7 mg/dl (7-17); Calcium 8.6 mg/dl (8.4-10.2); Carbon Dioxide 22 mmol/L (22-30); Chloride 105 mmol/L (98-107); Estimated Creatinine Clearance 121 ml/min; Glucose 94 mg/dl (70-99); Potassium 3.6 mmol/L (3.5-5.1); Sodium 132 mmol/L (135-145); Total Protein 7.2 g/dl (6.3-8.2); eGFR > 60.00
[2025-06-20 15:26] LABS: C-Reactive Protein 18.30 mg/L (0.0-10.00)
== END 2025-06-20 16:27 | disposition home or self-care (01) ==
LOC: EMR 13:11
PROVIDERS: Physician Assistant; EMERGENCY PHYSICIAN Emergency Medicine; FAMILY PHYSICIAN Student in an Organized Health Care Education/Training Program
DX: L02.612 Cutaneous abscess of left foot (principal); B95.62 Methicillin resistant Staphylococcus aureus infection as the cause of diseases classified elsewhere; Z16.11 Resistance to penicillins; Z16.29 Resistance to other single specified antibiotic; J45.909 Unspecified asthma, uncomplicated; E03.9 Hypothyroidism, unspecified; K31.84 Gastroparesis; F31.9 Bipolar disorder, unspecified; F41.1 Generalized anxiety disorder; F43.10 Post-traumatic stress disorder, unspecified; M45.9 Ankylosing spondylitis of unspecified sites in spine; M79.7 Fibromyalgia; F17.200 Nicotine dependence, unspecified, uncomplicated
CPT/HCPCS: 99284; 10060; 73660; 80053; 85025; 85652; 86140; 87070; 87147; 87186; 87205